=== PATIENT | female | born 1945 | race American Indian/Alaskan Native ===

== ENCOUNTER 2017-04-24 14:17 | Emergency (ER) | payer MEDICARE ==
[2017-04-24 14:47] VITALS: BP 140/80
[2017-04-24] MEDS ORDERED: ROCEPHIN IM ONE (14:58)
[2017-04-24] MEDS ORDERED: XYLOCAINE 1% 20 mL INFILTRATI ONE ×2 (14:58→15:25)
--- NOTE | 2017-04-24 15:00 | Emergency Department Report ---
Abscess Boil HPI - HPI Chief Complaint: Skin/Abscess/Foreign Body Stated Complaint: LT NIPPLE RED/BLEEDING Time Seen by Provider: 04/24/17 14:51 Duration: 4 Days Location: Other (l breast; dom 2014 normal) Severity: Mild History: Yes Pain, Yes Purulent Drainage, No Fever, No Numbness, No Foreign Body , No Previous History, No Insect Bite Home Medications: Previous Rx's Medication Instructions Recorded Last Taken Type Sulfamethoxazole/Trimethoprim 1 each PO BID #20 tablet 02/11/16 Unknown Rx [Bactrim DS TAB] Cephalexin [Keflex] 500 mg PO Q12HR #20 cap 04/24/17 Unknown Rx Allergies/Adverse Reactions: Allergies Allergy/AdvReac Type Severity Reaction Status Date / Time No Known Allergies Allergy Verified 04/24/17 14:38 ED Review of Systems ROS: Stated complaint: LT NIPPLE RED/BLEEDING Other details as noted in HPI Comment: All other systems reviewed and negative Constitutional: no symptoms reported, see HPI. denies: chills, diaphoresis, fever, malaise Eyes: as per HPI. denies: eye pain, eye discharge, vision change ENT: as per HPI. denies: ear pain, throat pain, dental pain, hearing loss, epistaxis Respiratory: no symptoms reported, see HPI. denies: cough, orthopnea, shortness of breath, SOB with exertion, SOB at rest, stridor, wheezing Cardiovascular: as per HPI. denies: chest pain, palpitations, dyspnea on exertion, orthopnea, edema, syncope, paroxysmal nocturnal dyspnea Endocrine: no symptoms reported, see HPI. denies: excessive sweating, flushing , intolerance to cold, intolerance to heat, increased hunger, increased thirst, increased urine, unexplained weight gain, unexplained weight loss Gastrointestinal: as per HPI. denies: abdominal pain, nausea, vomiting, diarrhea, constipation, hematemesis, melena Genitourinary: as per HPI. denies: urgency, dysuria, frequency, hematuria, discharge, abnormal menses Musculoskeletal: as per HPI. denies: back pain, joint swelling, arthralgia, myalgia Skin: as per HPI, other (abscess l breast). denies: rash, lesions, change in color, change in hair/nails, pruritus Neurological: as per HPI, other (ambulatory). denies: headache, weakness, numbness, paresthesias, confusion, abnormal gait Psychiatric: as per HPI. denies: anxiety, depression, auditory hallucinations, visual hallucinations, homicidal thoughts, suicidal thoughts Hematological/Lymphatic: as per HPI. denies: easy bleeding ED Past Medical Hx - Past Medical History Hx Hypertension: Yes Hx Diabetes: Yes Additional medical history: ANEMIA. HIGH CHOLESTEROL - Surgical History Additional Surgical History: HERNIA REPAIR. TONSILLECTOMY - Family History Family history: no significant - Social History Smoking Status: Never Smoker Substance Use Type: None - Medications Home Medications: Home Medications Medication Instructions Recorded Confirmed Last Taken Type Sulfamethoxazole/Trimethoprim 1 each PO BID #20 tablet 02/11/16 Unknown Rx [Bactrim DS TAB] Cephalexin [Keflex] 500 mg PO Q12HR #20 cap 04/24/17 Unknown Rx ED Abscess Boil Physical Exam - Exam General: Vital signs noted. No distress. Alert and acting appropriately. Front/Back of Body, Lg (Color): 1 - l breast Size: 3 cm Exam: Yes Tenderness, Yes Fluctuance, Yes Surrounding Cellulites/Erythema, Yes Normal Neurologic Exam, Yes Normal Circulation, No Lymphangitis, No Crepitation , No Heart Murmur I & D Note - I & D Note I & D Note: cleaned breast, lido for pain 2 ml 1% without epi, abscess opened. mod amount serosang drainage. no odor. pendulous breast. nipples small and retracted but bilat. 2014 dom neg. no s/s systemic illness. dressing applied. son taught wound care. ED Course Vital Signs 04/24/17 14:46 Temperature 99.1 F Pulse Rate 88 Respiratory 18 Rate Blood Pressure 140/80 O2 Sat by Pulse 97 Oximetry - Reevaluation(s) Reevaluation #1: 04/24/17 15:15 to er w co l breast bump since Wed. no other s/s no systemic illness lives w son reliable for fu Wednesday w pcp I/D performed pt and son updated on plan of care medication per AN[facility] home Critical care attestation.: If time is entered above; I have spent that time in minutes in the direct care of this critically ill patient, excluding procedure time. ED Medical Decision Making - Medical Decision Making breast abscess in elderly AA female I/D No hypotension/tachy/neuro intact lives w son fu pcp Wednesday - Differential Diagnosis abscess wo systemic s/s of infection ED Disposition Clinical Impression: Abscess Disposition: DC- TO HOME OR SELFCARE Is pt being admited?: No Does the pt Need Aspirin: No Condition: Stable Instructions: Breast Abscess Drainage (ED) Additional Instructions: warm epsom salt compresses will help sooth area med as ordered today monitor blood sugar follow up pcp this week- will need to make sure responding to antibiotics and they may do a mamogram after infection resolves keep dressing clean and dry hydrate well Prescriptions: Cephalexin [Keflex] 500 mg PO Q12HR #20 cap Referrals: PRIMARY CARE, [Primary Care Provider] - 3-5 Days Time of Disposition: 15:14
[2017-04-24] MEDS ORDERED: TYLENOL PO ONE (15:14)
[2017-04-24] MEDS ORDERED: XYLOCAINE 1% MPF 5 mL INFILTRATI ONE (15:24)
== END 2017-04-24 15:34 | disposition home or self-care (01) ==
LOC: ED 14:17
DX: N61.1 Abscess of the breast and nipple (principal); I10 Essential (primary) hypertension; E11.9 Type 2 diabetes mellitus without complications; D64.9 Anemia, unspecified; E78.00 Pure hypercholesterolemia, unspecified
CPT/HCPCS: 10060; 82962; 96372; 99283; J0696

== ENCOUNTER 2018-05-02 16:27 | Emergency (ER) | payer MEDICARE ==
[2018-05-02 17:07] VITALS: BP 113/72
--- NOTE | 2018-05-02 21:07 | Emergency Department Report ---
Abscess Boil HPI - HPI Chief Complaint: Skin/Abscess/Foreign Body Stated Complaint: (L) THIGH BLEEDING Time Seen by Provider: 05/02/18 20:48 Duration: 1 Day Location: Lower Extremity Severity: Moderate History: Yes Pain, Yes Purulent Drainage, Yes Previous History, No Fever, No Numbness, No Foreign Body, No Insect Bite HPI: Left inner thigh abscess 1 x 2 cm draining scant bloody drainage the patient states ruptured this morning pus and foul-smelling, mild pain no fever no chills no n/v Home Medications: Previous Rx's Medication Instructions Recorded Last Taken Type Sulfamethoxazole/Trimethoprim 1 each PO BID #20 tablet 02/11/16 Unknown Rx [Bactrim DS TAB] Cephalexin [Keflex] 500 mg PO Q12HR #20 cap 04/24/17 Unknown Rx Acetaminophen/Codeine [Tylenol 1 tab PO Q8H PRN #12 tab 05/02/18 Unknown Rx /Codeine # 3 tab] Sulfamethoxazole/Trimethoprim 1 each PO BID #20 tablet 05/02/18 Unknown Rx [Bactrim DS TAB] Allergies/Adverse Reactions: Allergies Allergy/AdvReac Type Severity Reaction Status Date / Time No Known Allergies Allergy Verified 05/02/18 17:07 ED Review of Systems ROS: Stated complaint: (L) THIGH BLEEDING Other details as noted in HPI Constitutional: denies: chills, fever Eyes: denies: eye pain, eye discharge, vision change ENT: denies: ear pain, throat pain Respiratory: denies: cough, shortness of breath, wheezing Cardiovascular: denies: chest pain, palpitations Endocrine: no symptoms reported Gastrointestinal: denies: abdominal pain, nausea, diarrhea Genitourinary: denies: urgency, dysuria, discharge Musculoskeletal: denies: back pain, joint swelling, arthralgia Skin: lesions (left inner thigh abscess ) Neurological: denies: headache, weakness, paresthesias Psychiatric: denies: anxiety, depression Hematological/Lymphatic: denies: easy bleeding, easy bruising ED Past Medical Hx - Past Medical History Hx Hypertension: Yes Hx Diabetes: Yes Additional medical history: ANEMIA. HIGH CHOLESTEROL - Surgical History Past Surgical History?: Yes Additional Surgical History: HERNIA REPAIR. TONSILLECTOMY - Social History Smoking Status: Never Smoker Substance Use Type: None - Medications Home Medications: Home Medications Medication Instructions Recorded Confirmed Last Taken Type Sulfamethoxazole/Trimethoprim 1 each PO BID #20 tablet 02/11/16 Unknown Rx [Bactrim DS TAB] Cephalexin [Keflex] 500 mg PO Q12HR #20 cap 04/24/17 Unknown Rx Acetaminophen/Codeine [Tylenol 1 tab PO Q8H PRN #12 tab 05/02/18 Unknown Rx /Codeine # 3 tab] Sulfamethoxazole/Trimethoprim 1 each PO BID #20 tablet 05/02/18 Unknown Rx [Bactrim DS TAB] ED Abscess Boil Physical Exam - Exam General: Vital signs noted. No distress. Alert and acting appropriately. Size: 2 cm Exam: Yes Tenderness, Yes Fluctuance, Yes Surrounding Cellulites/Erythema (mild erythema ), Yes Normal Neurologic Exam, Yes Normal Circulation, No Lymphangitis , No Crepitation, No Heart Murmur I & D Note - I & D Note I & D Note: I&d of left inner thight abscess anesthesia with 1% lidocaine, incision with 11blade x 1 straight mod bloody purulent drainage, irrigated wtih 60 cc steril saline wound left open sterile dressing applied plan, bactrim DS , wound care instructions to family members and patient, both verbalized agreement and understanding of same. ED Course Vital Signs 05/02/18 17:03 Temperature 98.7 F Pulse Rate 98 H Respiratory 20 Rate Blood Pressure 113/72 O2 Sat by Pulse 98 Oximetry Critical care attestation.: If time is entered above; I have spent that time in minutes in the direct care of this critically ill patient, excluding procedure time. ED Medical Decision Making - Medical Decision Making Left thigh abscess for I&D Drainage mod bloody purulent output will irrigated to clear sterile dressing applied patient family was given wound care instruction verbalized understanding and agreement same with DC'd home with prescription for Bactrim and Tylenol 3 follow with primary care Dr. Luis Alberto Denise primary care in 2-3 days for wound check patient verbalizes understanding and agreement was signed will be DC'd home in stable condition at this time ED Disposition Clinical Impression: Abscess of left thigh Disposition: DC-01 TO HOME OR SELFCARE Is pt being admited?: No Does the pt Need Aspirin: No Condition: Good Instructions: Abscess Incision and Drainage (ED) Prescriptions: Acetaminophen/Codeine [Tylenol /Codeine # 3 tab] 1 tab PO Q8H PRN #12 tab PRN Reason: pain Sulfamethoxazole/Trimethoprim [Bactrim DS TAB] 1 each PO BID #20 tablet Referrals: JACOB EDDY MD [Staff Physician] - 3-5 Days Forms: Work/School Release Form(ED) Time of Disposition: 21:10
== END 2018-05-02 21:20 | disposition home or self-care (01) ==
LOC: ED 16:27
DX: L02.416 Cutaneous abscess of left lower limb (principal); I10 Essential (primary) hypertension; E11.9 Type 2 diabetes mellitus without complications; E78.00 Pure hypercholesterolemia, unspecified; Z90.89 Acquired absence of other organs